=== PATIENT | female | born 1965 | race Caucasian/White ===

== ENCOUNTER 2017-04-18 12:23 | Emergency (ER) | payer OTHER ==
[2017-04-18 12:33] VITALS: BP 114/54; PULSE 78; RESP 18; TEMP 97; O2SAT 97
--- NOTE | 2017-04-18 13:21 | EDPHY ---
H & P Time Seen by Provider: 04/18/17 12:30 HPI/ROS: This patient sustained a laceration to her right 2nd finger a food shortly prior to arrival with moderate and moderate this that she slipped with a knife causing a laceration. This occurred at home. She drove herself by private vehicle. She also reports a fall at home the night before presentation which she reached out to catch herself with her arm and injured her left shoulder. She states that this feels like a mild to moderate ache to the deltoid musculature extending into the trapezius. She notes no other associated symptoms. She had partial improvement from [id number] analgesics. Past Medical/Surgical History: Otherwise healthy Smoking Status: Never smoked Physical Exam: Physical Exam Vital signs are normal. General: No acute distress HEENT: Atraumatic. Eyes: Pupils equal and react to light. Extraocular motions are intact. Lungs: No respiratory distress. Cardiac: Brisk capillary refill is intact throughout. Pulses are 2+ and symmetric in the affected extremity. Extremities: Atraumatic normal except for left shoulder Left shoulder: Patient has mild trapezius tenderness and deltoid muscle tenderness. Despite that she maintains full range of motion which she has mild increase in pain with AB duction. No difficulty with external rotation. There is no deformity. There is no clavicle tenderness or swelling 2nd finger exam: Patient has a 1.3 cm full-thickness laceration to the distal phalanx volar aspect with mild bleeding. No foreign bodies. Skin: No rash or pallor. Neuro: Alert and oriented x3 with no sensorimotor deficits. Initial differential diagnosis: Finger laceration, Shoulder muscle strain, rotator cuff strain, doubt fracture based on clinical exam Constitutional: Initial Vital Signs Temperature (C) 36.1 C 04/18/17 12:31 Heart Rate 78 04/18/17 12:31 Respiratory Rate 18 04/18/17 12:31 Blood Pressure 114/54 L 04/18/17 12:31 O2 Sat (%) 97 04/18/17 12:31 O2 Delivery Mode Room Air Allergies/Adverse Reactions: No Known Allergies Allergy (Verified 04/23/17 20:16) Home Medications: Medication Instructions Recorded Chlorzoxazone [Lorzone] 04/23/17 FLUoxetine 04/23/17 MDM/Departure - MDM Procedures: Digital block: After verbal consent, using a 50 50 mix of 0.5% Marcaine 2% plain lidocaine, 27 gauge needle, chlorhexidine scrub under sterile conditions- 3 injections were administered to the base of the affected finger, 8 mL with good effect. Patient tolerated this well. There were no complications. The wound is 1 cm full-thickness. The wound was copiously irrigated with saline. The wound was explored for foreign bodies and none were found. The wound was prepped and draped in the normal sterile fashion. The edges were reapproximated using 4 0 Prolene-6 running sutures with good hemostasis and cosmesis. The patient tolerated the procedure well. There were no complications ED Course/Re-evaluation: The patient declined imaging of her shoulder. Wound is placed in tube gauze dressing after repair. Counseled patient regarding shoulder strain. - Depart Disposition: Home, Routine, Self-Care Clinical Impression: Finger laceration Qualifiers: Encounter type: initial encounter Finger: index finger Damage to nail status: without damage Foreign body presence: without foreign body Laterality: unspecified laterality Qualified Code(s): S61.218A - Laceration without foreign body of other finger without damage to nail, initial encounter Shoulder strain Qualifiers: Encounter type: initial encounter Laterality: left Qualified Code(s): S46.912A - Strain of unspecified muscle, fascia and tendon at shoulder and upper arm level, left arm, initial encounter Condition: Good Instructions: Rotator Cuff Injury (ED), Finger Laceration (ED) Additional Instructions: Diagnosis: 1. Finger laceration 2. Left shoulder muscle strain Your shoulder injury seems consistent with deltoid muscle strain. He may also have a mild rotator cuff injury but clinically do not seem to have evidence of rotator cuff tear. Plan: Keep the wound clean and dry for the next 2 days. Then clean daily with warm soapy water. Ibuprofen Tylenol for pain as needed Her shoulder-gentle shoulder stretches each day as described. If her symptoms are not significantly improving with ibuprofen Tylenol in her shoulder over the next week then follow up with the orthopedic physician listed below. Return for suture removal in 10-12 days. Return sooner if he develops redness, discharge or other concerns for infection. Referrals: NONE *PRIMARY CARE P,. [Primary Care Provider] - As per Instructions Kwabena Bro MD [Medical Doctor] - As per Instructions
== END 2017-04-18 13:30 | disposition home or self-care (01) ==
LOC: CED 12:23
PROC: 0HQFXZZ Repair Right Hand Skin, External Approach (ICD-10-PCS; principal; 2017-04-18)
DX: S61.210A Laceration without foreign body of right index finger without damage to nail, initial encounter (principal); S46.912A Strain of unspecified muscle, fascia and tendon at shoulder and upper arm level, left arm, initial encounter; W18.39XA Other fall on same level, initial encounter; W26.0XXA Contact with knife, initial encounter; Y92.009 Unspecified place in unspecified non-institutional (private) residence as the place of occurrence of the external cause

== ENCOUNTER 2017-04-23 19:52 | Emergency (ER) | payer OTHER ==
--- NOTE | 2017-04-23 20:19 | EDPHY ---
H & P HPI/ROS: CHIEF COMPLAINT: Left shoulder pain History by patient HISTORY OF PRESENT ILLNESS: 52-year-old woman presents complaining of left shoulder pain after she fell backwards with her arm extended over her head and landing on her left shoulder from the top of a recycling bin that she was trying to compact by standing inside. It hurt immediately. She did not feel any pop. Patient is right-hand dominant. She denies hitting her head or any other injury. She tried icing it and she took a muscle relaxant she had at home with minimal relief. Injury occurred about an hour prior to admission. REVIEW OF SYSTEMS: As in HPI, and all other systems reviewed and are negative Smoking Status: Never smoked Physical Exam: General Appearance: Alert and no distress. Eyes: Pupils equal and round no injection. Musculoskeletal: Neck is supple and nontender. Extremities: Left shoulder positive anterior tenderness but no obvious deformity, decreased range of motion secondary to pain, patient unable to externally rotate actively or passively, patient can't extend the shoulder passively with pain, radial pulses 2+ and equal to the right, distal sensations intact, elbow and wrist have full range of motion without deformity,. Skin: No rashes or lesions except as described above. Constitutional: Initial Vital Signs Temperature (C) 36.7 C 04/23/17 20:17 Heart Rate 68 04/23/17 20:17 Respiratory Rate 16 04/23/17 20:17 Blood Pressure 113/69 04/23/17 20:17 O2 Sat (%) 95 04/23/17 20:17 O2 Delivery Mode Room Air Allergies/Adverse Reactions: No Known Allergies Allergy (Verified 04/23/17 20:16) Home Medications: Medication Instructions Recorded Chlorzoxazone [Lorzone] 04/23/17 FLUoxetine 04/23/17 MDM/Departure - MDM Imaging Results: Imaging Impressions Shoulder X-Ray 04/23/17 20:22 Impression: No evidence for acute osseous of normality left shoulder. Imaging: Discussed imaging studies w/ [facility] [employer] Radiologist Medications Given: Discontinued Medications Ibuprofen (Motrin) 600 mg PO EDNOW ONE Stop: 04/23/17 20:22 Last Admin: 04/23/17 20:26 Dose: 600 mg ED Course/Re-evaluation: 52-year-old woman presents with left shoulder pain after a fall. X-ray shows no evidence of fracture dislocation. Patient was given ibuprofen for pain with some improvement. On re-evaluation she was able to do greater range of motion. Patient was placed in a sling for comfort. I suspect traumatic rotator cuff injury. Patient is referred to Ortho for follow-up. Patient was seen 5 days ago for laceration to right index finger. She was concerned she was getting infection in his finger because it was feeling "hot and throbbing ". She has been putting antibiotic ointment on it. On evaluation of her right index finger there are sutures in place in the wound is clean dry and intact without drainage or erythema. There is mild tenderness surrounding the wound but no evidence of craig infection. I will have her stop using the antibiotic ointment and at this point there is no indication to start antibiotics or other treatment for infection. - Depart Disposition: Home, Routine, Self-Care Clinical Impression: Injury of left rotator cuff Qualifiers: Encounter type: initial encounter Qualified Code(s): S46.002A - Unspecified injury of muscle(s) and tendon(s) of the rotator cuff of left shoulder, initial encounter Condition: Good Instructions: Rotator Cuff Injury (ED) Additional Instructions: You were seen by Dr. Maribel Ambrose today. Wear sling for comfort but please try to arrange your shoulder joint to 3 times a day to prevent frozen shoulder. Take ibuprofen 600 mg every 6 hr as needed for pain. Please follow up with the orthopedist, Dr. Wade. Return for any worsening or new concerns. Referrals: NONE *PRIMARY CARE P,. [Primary Care Provider] - As per Instructions Ria Wade MD [Medical Doctor] - As per Instructions
[2017-04-23 20:20] VITALS: BP 113/69; PULSE 68; RESP 16; TEMP 98.1; O2SAT 95
[2017-04-23] MEDS ORDERED: IBUPROFEN 200 MG TAB PO ONE (20:21)
== END 2017-04-23 21:15 | disposition home or self-care (01) ==
LOC: CED 19:52
DX: S46.002A Unspecified injury of muscle(s) and tendon(s) of the rotator cuff of left shoulder, initial encounter (principal); W18.39XA Other fall on same level, initial encounter
CPT/HCPCS: 73030-PO; A4565